=== PATIENT | male | born 1965 | race Caucasian/White ===

== ENCOUNTER 2024-08-19 10:25 | Observation (INO) | payer OTHER, SELFPAY ==
[2024-08-19] VITALS (18 sets, daily range): BP systolic 120–160; BP diastolic 65–108; PULSE 61–85; RESP 16–19; TEMP 36.4–36.8; O2SAT 93–100; BMI 21.7
[2024-08-19 10:34] LABS: Glucose Point of Care 162 mg/dL (70-110)
--- NOTE | 2024-08-19 10:34 | ED_ITS ---
HPI - Neuro Symptoms/Deficit 2 General: Chief Complaint: Neuro Symptoms/Deficit Stated Complaint: stroke symptoms Time Seen by Provider: 08/19/24 10:30 History of Present Illness: 59-year-old male presents emergency room complaining of strokelike symptoms. He had difficulty ambulating. Has weakness and some bilateral worse on the right than on the left his last known well was at 920 this morning. Bedtime patient arrived. Difficult time getting out of the car on his own however when I encountered him he was in the CT scanner at that point he states his symptoms have gotten much better. He is not on any anticoagulants. His initial NIH score to my testing was 0. He states most of his symptoms have resolved. His initial blood glucose was 162. He was dizzy and somewhat nauseous with it but that has also resolved. Associated symptoms: Deny chest pain Related Data Home Medications Medication Instructions Recorded Confirmed alprazolam 0.5 mg tablet 0.5 mg PO DAILY 08/19/24 08/19/24 diclofenac sodium 75 mg 75 mg PO BID 08/19/24 08/19/24 tablet,delayed release temazepam 30 mg capsule 30 mg PO QPM 08/19/24 08/19/24 trazodone 100 mg tablet 100 mg PO QPM 08/19/24 08/19/24 Allergies Allergy/AdvReac Type Severity Reaction Status Date / Time No Known Allergies Allergy Unverified 08/15/23 18:12 Review of Systems 2 Const: Denies: fever(s) or chills Card: Denies: chest pain Resp: Denies: dyspnea GI: Denies: abdominal pain : Denies: dysuria, urinary frequency or urinary urgency Musc: Denies: neck pain or back pain Skin/Breast: Denies: rash NIH stroke score 2 NIHSS: Level Of Consciousness - 1a: 0 Level Of Consciousness Questions - 1b: Both Correct Level Of Consciousness Commands - 1c: Both Correct Best Gaze - 2: Normal Visual Garcia - 3: No Visual Loss Facial Palsy - 4: N ormal Motor Arm Right - 5: No Drift Motor Arm Left - 5: No Drift Motor Leg Right - 6: No Drift Motor Leg Left - 6: No Drift Limb Ataxia - 7: A bsent Sensory - 8: Normal Best Language - 9: No Aphasia Dysarthia - 10: Normal Extinction And Inattention - 11: 0 Score: Total Score: 0 Physical Exam 2 Const: COMMON NORMALS: no acute distress GENERAL APPEARANCE: cooperative and comfortable ORIENTATION/CONSCIOUSNESS: Yes awake, Yes oriented to person, Yes oriented to place and Yes oriented to time HENMT: COMMON NORMALS: normocephalic, atraumatic and hearing grossly normal bilaterally HEAD & SCALP: normocephalic and atraumatic Resp: COMMON NORMALS: normal respiratory effort, No retractions, No use of accessory muscles and clear to auscultation bilaterally AUSCULTATION: clear to auscultation bilaterally Cardio: COMMON NORMALS: regular rate, regular rhythm and No murmurs present (Cardio) RATE: regular rate RHYTHM: regular rhythm GI: COMMON NORMALS: Soft to palpation and No hepatosplenomegaly present A USCULTATION: Yes normoactive bowel sounds PALPATION: Yes Soft to palpation, No Tenderness to palpation present (GI), No Guarding due to palpation present (GI) and Yes No hepatosplenomegaly present Extremity: COMMON NORMALS: normal to inspection, capillary refill normal, no clubbing, cyanosis or edema, no calf tenderness and no pedal edema Neuro: SENSORIUM/ORIENTATION: Yes oriented to person, Yes oriented to place and Yes oriented to time Skin: COMMON NORMALS: no rashes or lesions noted GENERAL SKIN EXAM: no rashes or lesions noted Course 2 Vital Signs: Vital signs: Vital Signs Temperature 98.3 F 08/19/24 10:42 Pulse Rate 68 08/19/24 14:30 Respiratory Rate 16 08/19/24 14:30 Blood Pressure 137/65 08/19/24 14:30 Pulse Oximetry 95 08/19/24 14:30 Oxygen Delivery Me thod Room Air 08/19/24 10:42 MDM - Neuro Symptoms/Deficit Medical Decision Making Shortly after I completed my initial exam Dr. Guillen arrives and is examining the patient in consultation for stroke team. 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 Guillen is recommending observation with further evaluation discussed with the hospitalist orders written Medical Records I reviewed the patient's medical records. Lab Data I reviewed the patient's lab results. 08/19/24 10:40 08/19/24 10:[address] 08/19/24 10:40 IMPRESSION: 1. No acute intracranial hemorrhage or edema. 2. Mild atrophy and small vessel disease. 3. Very subtle area of increased attenuation in the RIGHT M2 segment. This can be further evaluated by CT angiogram to exclude thrombus. Notified Louis Elias DO at 08/19/2024 10:47 AM. Head/Neck CTA 08/19/24 10:51 IMPRESSION: 1. No significant cervical carotid artery atherosclerotic disease or stenosis. 2. Mild atherosclerotic plaque in the cervical carotid arteries. 3. LEFT M2 and M3 arteries are smaller caliber than on the RIGHT. No complete occlusion. Change in caliber is in the distal M2 distribution. There is no [place] emboli. 4. LEFT posterior cerebral artery smaller caliber than the RIGHT with persistent circulation. Laboratory Results WBC 4.16 10^3/uL (3.29-11.43) 08/19/24 10:40 RBC 4.71 10^6/uL (3.85-5.65) 08/19/24 10:40 Hgb 14.30 g/dL (11.27-16.99) 08/19/24 10:40 Hct 41.3 % (37-53) 08/19/24 10:40 MCV 87.7 fl (82-101) 08/19/24 10:40 MCH 30.4 pg (27-33) 08/19/24 10:40 MCHC 34.6 g/dL (30-55) 08/19/24 10:40 RDW 12.6 % (12.1-15.1) 08/19/24 10:40 Plt Count 155 10^3/cmm (157-399) L 08/19/24 10:40 MPV 8.9 fL (7.4-10.4) 08/19/24 10:40 Neut % (Auto) 70.9 % 08/19/24 10:40 Lymph % (Auto) 19.5 % 08/19/24 10:40 [place] % (Auto) 7.5 % 08/19/24 10:40 Eos % (Auto) 1.2 % 08/19/24 10:40 Baso % (Auto) 0.7 % 08/19/24 10:40 Neut # (Auto) 2.95 10^3/uL (1.8-7.7) 08/19/24 10:40 Lymph # (Auto) 0.8 10^3/uL (0.8-4.8) 08/19/24 10:40 [place]in # (Auto) 0.3 10^3/uL (0.2-0.9) 08/19/24 10:40 Eos # (Auto) 0.1 10^3/uL (0.0-0.8) 08/19/24 10:40 Baso # (Auto) 0.0 10^3/uL (0.0-0.1) 08/19/24 10:40 Nucleated RBC % (auto) 0 % 08/19/24 10:40 Nucleated RBCs # 0.0 /100WBC 08/19/24 10:40 PT 13.70 SECONDS (12.1-14.9) 08/19/24 10:40 INR 0.98 (0.8-1.2) 08/19/24 10:40 APTT 36.2 SECONDS (23.9-36.7) 08/19/24 10:40 Sodium 133 mmol/L (136-145) L 08/19/24 10:40 Potassium 4.5 mmol/L (3.5-5.1) 08/19/24 10:40 Chloride 98 mmol/L (98-107) 08/19/24 10:40 Carbon Dioxide 19 mmol/L (22-29) L 08/19/24 10:40 Anion Gap 20.5 (5-19) H 08/19/24 10:40 BUN 20 mg/dL (8-23) 08/19/24 10:40 Creatinine 1.0 mg/dL (0.7-1.2) 08/19/24 10:40 GFR Calculation 76.0 mL/min (90-130) L 08/19/24 10:40 Glucose 159 mg/dL (65-115) H 08/19/24 10:40 POC Glucose 162 mg/dL (70-110) H 08/19/24 10:30 Calculated Osmolality 282 mOsm/kg (285-295) L 08/19/24 10:40 Calcium 9.0 mg/dL (8.5-10.5) 08/19/24 10:40 Total Bilirubin 0.6 mg/dL (0.15-1.2) 08/19/24 10:40 AST 56 U/L (0-40) H 08/19/24 10:40 ALT 86 U/L (0-41) H 08/19/24 10:40 Alkaline Phosphatase 93 U/L (40-130) 08/19/24 10:40 Total Protein 8.6 g/dL (6.6-8.7) 08/19/24 10:40 Albumin 4.2 g/dL (3.5-5.2) 08/19/24 10:40 Globulin 4.4 g/dL (1.3-4.6) 08/19/24 10:40 Urine Color Yellow (Yellow) 08/19/24 12:21 Urine Appearance Cloudy (CLEAR) A 08/19/24 12:21 Urine pH 6.5 (5-7) 08/19/24 12:21 Ur Specific [place] 1.041 (1.005-1.030) H 08/19/24 12:21 Urine Protein Negative (Negative) 08/19/24 12:21 Urine Glucose (UA) Negative (Normal) 08/19/24 12:21 Urine Ketones Negative (Negative) 08/19/24 12:21 Urine Blood Negative (Negative) 08/19/24 12:21 Urine Nitrate Negative (Negative) 08/19/24 12:21 Urine Bilirubin Negative (Negative) 08/19/24 12:21 Urine Urobilinogen 0.2 mg/dL (Negative) 08/19/24 12:21 Ur Leukocyte Esterase Negative (Negative) 08/19/24 12:21 Urine RBC 0-2 /hpf (0-2) 08/19/24 12:21 Urine WBC 0-5 /hpf (0-5) 08/19/24 12:21 Ur Squamous Epith Cells 0-5 /hpf (0-5) 08/19/24 12:21 Amorphous Sediment Not Reportable 08/19/24 12:21 Urine Bacteria None seen /hpf (NONE) 08/19/24 12:21 Hyaline Casts 0.81 /lpf 08/19/24 12:21 Urine Opiates Screen Negative ng/mL (Negative) 08/19/24 12:21 Ur Barbiturates Screen Negative ng/mL (Negative) 08/19/24 12:21 Ur Phencyclidine Scrn Negative ng/mL (Negative) 08/19/24 12:21 Ur Amphetamines Screen Negative ng/mL (Negative) 08/19/24 12:21 U Benzodiazepines Scrn Positive ng/mL (Negative) H 08/19/24 12:21 Urine Cocaine Screen Negative ng/mL (Negative) 08/19/24 12:21 U Marijuana (THC) Screen Negative ng/mL (Negative) 08/19/24 12:21 All radiology interpretation(s) finalized by discharge Discharge Plan Discharge Patient Disposition: Placed in Observation Admit Provider: Sheila Oneal Clinical Impression: TIA involving left internal carotid artery Condition: Stable Coding Level of Care Code ED Attache for Sabrina Jensen
--- NOTE | 2024-08-19 10:40 | CT_ITS ---
WS: [id number] CT HEAD NONCONTRAST HISTORY: DIZZY RT SIDE WEAKNESS TECHNIQUE: Contiguous axial imaging performed through the brain. Bone and soft tissue windows. Sagitt al and coronal reformats reviewed. All CT scans at [facility] use at least one of these dose optimization techniques: automated exposure control; mA and/or kV adjustment per patient size (includ es targeted exams where dose is matched to clinical indication); or iterative reconstruction. DLP: 1152.58 mGy COMPARISON: None available. No acute intracranial hemorrhage, midline shift or mass effect. Mild cerebral and cerebellar atrophy and small vessel disease. No prior lacunar infarct or large terr itory infarct. Ventricles: Normal size with no hydrocephalus. There is a tiny area of increased density in the RIGHT M2 segment which is asymmetric to the LEFT. Th is can be further evaluated by CT angiogram. Paranasal sinuses: As visualized are clear. Mastoid air cells: Well pneumatized. Calvarium and scalp: Skull is intact with no soft tissue edema or swelling. CT/CT head thrombolytic [id number] IMPRESSION: 1. No acute intracranial hemorrhage or edema. 2. Mild atrophy and small vessel disease. 3. Very subtle area of increased attenuation in the RIGHT M2 segment. This can be further evaluated by CT angiogram to exclude thrombus. Notified Louis Elias DO at 08/19/2024 10:47 AM.
[2024-08-19 10:45] LABS: Basophils % 0.7 %; Eosinophils # 0.1 10^3/uL (0.0-0.8); Eosinophils % 1.2 %; Hematocrit 41.3 % (37-53); Lymphocytes # 0.8 10^3/uL (0.8-4.8); Lymphocytes % 19.5 %; Mean Corpuscular HGB Conc 34.6 g/dL (30-55); Mean Corpuscular Hemoglobin 30.4 pg (27-33); Mean Corpuscular Volume 87.7 fl (82-101); Mean Platelet Volume 8.9 fL (7.4-10.4); Monocytes # 0.3 10^3/uL (0.2-0.9); Monocytes % 7.5 %; Neutrophils # 2.95 10^3/uL (1.8-7.7); Neutrophils % 70.9 %; Nucleated Red Blood Cells % 0 %; Platelet Count 155 10^3/cmm (157-399); Red Blood Count 4.71 10^6/uL (3.85-5.65); Red Cell Distribution Width 12.6 % (12.1-15.1); White Blood Count 4.16 10^3/uL (3.29-11.43)
--- NOTE | 2024-08-19 10:47 | PC.NURSE ---
FSBS AT TRIAGE 162.
--- NOTE | 2024-08-19 10:51 | CT_ITS ---
WS: [id number] CT ANGIOGRAM CEREBRAL AND CAROTID ARTERIES HISTORY: TIA TECHNIQUE: CT angiogram is performed of the carotid and cerebral arteries. During arterial injection imaging is obtained from the skull vertex to the aortic arch in 1.25 mm imaging. Coronal and sagittal reformats are submitted. Additional multi planar reformats of the carotid and cerebral arteries are submitted, MIP imaging also reviewed. NASCET criteria utilized. [facility] at least one of these dose optimization techniques: automated exposure control; mA and/or kV adjust ment per patient size (includes targeted exams where dose is matched to clinical indication); or iter ative reconstruction. CONTRAST: Omnipaque 350; 100 mL IV. DLP: 565.05 mGy.cm COMPARISON: Noncontrast CT head 08/19/2024 Carotid Angiogram: Right carotid: Common carotid artery: Arises normally from the innominate artery. No significant plaque or stenosis. Internal carotid artery: Intimal thickening surrounding the proximal ICA but no stenosis. External carotid artery: Patent. Left carotid: Common carotid artery: Arises normally from the aorta. No significant plaque or stenosis. Internal carotid artery: Mild intimal thickening. No stenosis. External carotid artery: Patent. Right vertebral artery: Dominant and patent. Left vertebral artery: Smaller caliber than the RIGHT vertebral artery. No occlusion. Subclavian arteries: No stenosis or significant abnormality. Upper thorax: Benign granuloma RIGHT upper lobe. Mild atherosclerotic plaque through the aortic arch. Thyroid gland: Normal. Osseous structures: Reversal of the normal cervical lordosis. Osseous fusion involving several cervic al vertebral bodies. Cerclage wires in the posterior spinous processes. CEREBRAL ANGIOGRAM: Intracranial vertebral arteries: Normal with no significant atherosclerosis. Basilar artery: No significant stenosis or occlusion. No aneurysm. Intracranial Internal carotid arteries: Demonstrates no significant stenosis or plaque. Middle cerebral arteries: Bilateral M1 segments are normal. M2 segments are asymmetric with the LEFT being smaller caliber. Paucity of vessels towards the distal LEFT M2 segment into the M3 segments. No definite arterial occlusion. Anterior cerebral arteries and ACOM: Small caliber LEFT A1 segment. No aneurysms. Posterior cerebral arteries and PCOM's: Small caliber LEFT posterior cerebral artery with persistent circulation. No thrombus identified. Dural venous sinuses are normally enhancing. Mastoid air cells: Normal. Paranasal sinuses: Normal. Calvarium: Normal. CT/CT angio headneck* [id number] IMPRESSION: 1. No significant cervical carotid artery atherosclerotic disease or stenosis. 2. Mild atherosclerotic plaque in the cervical carotid arteries. 3. LEFT M2 and M3 arteries are smaller caliber than on the RIGHT. No complete occlusion. Change in caliber is in the distal M2 distribution. There is no cent [place] emboli. 4. LEFT posterior cerebral artery smaller caliber than the RIGHT with persiste nt circulation.
--- NOTE | 2024-08-19 10:57 | ECG_ITS ---
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 Measurements Intervals Boyd Rate: 72 P: 72 MO: 140 QRS: 71 QRSD: 78 T: 47 QT: 366 QTc: 401 Interpretive Statements SINUS RHYTHM No previous ECG available for comparison Electronically Signed On 08-22-2024 22:09:01 DRIVER MESSENGER by Asad Carson M.D. [email or web address] [id number]
[2024-08-19 11:03] LABS: INR 0.98 (0.8-1.2)
[2024-08-19 11:04] LABS: Partial Thromboplastin Time 36.2 SECONDS (23.9-36.7)
--- NOTE | 2024-08-19 11:04 | P.CONIM_ITS ---
Providers/Reason For Consult 2 Consulting Physician/Specialty*: Searfin Guillen MD neurology and epilepsy Reason for Consult*: Acute care/code stroke emergency department room #4 Primary Care Provider: Chandana Fenton MD History of Present Illness History of Present Illness Aleks Grijalva is a 59 year old right-handed male with no previous past medical history except for insomnia treated with Restoril and marijuana. On 08/19/2024 the patient was out in the field with cattle and was reported to experience acute onset of dizziness followed by right-sided weakness and numbness and tingling (face arm and leg) with inability to see or respond at 9:20 AM on 08/19/2024. Patient was brought to [facility] emergency department.Code stroke was initiated at 10:28 AM on 08/19/2024 In the emergency department patient reported near resolution of his symptoms except for residual numbness and tingling in the first through the fifth digits of the right hand up to his proximal phalanges and right hand weakness without arm weakness. Patient also stated resolution of his facial numbness and reported normal vision with no visual deficit. NIH score = 2 (numbness in the first through the fifth digits of the fingers of the right hand up to his proximal phalanges =1, decreased right hand respiratory care program director at 3+ to 4/5 strength =1). There was no drift in the right upper extremity. Glucose Accu-Chek at point of contact 162. Blood pressure 146/[address] 08/19/2024 Impression: IMPRESSION: 1. No acute intracranial hemorrhage or edema. 2. Mild atrophy and small vessel disease. 3. Very subtle area of increased attenuation in the RIGHT M2 segment. This can be further evaluated by CT angiogram to exclude thrombus. Since the patient continued to report intermittent dizziness, I recommended patient undergo CT angiogram of the head and neck to assess for left ICA distribution thrombus or posterior circulation thrombus. Drug allergies: None Current medications: Restoril 30 mg p.o. nightly as needed for sleep Marijuana at night for sleep Past medical history: None Family history: Noncontributory Occupation: hvac installer Social history: The patient lives with his Review of Systems 2 General: Reports: 10 or more systems reviewed and unremarkable except in HPI and below Medications/Allergies Home Medications Medication Instructions Recorded Confirmed Last Taken Type alprazolam 0.5 mg tablet 0.5 mg PO DAILY 08/19/24 08/19/24 08/18/24 History diclofenac sodium 75 mg 75 mg PO BID 08/19/24 08/19/24 Unknown History tablet,delayed release temazepam 30 mg capsule 30 mg PO QPM 08/19/24 08/19/24 08/18/24 History trazodone 100 mg tablet 100 mg PO QPM 08/19/24 08/19/24 08/18/24 History Allergies Allergy/AdvReac Type Severity Reaction Status Date / Time No Known Allergies Allergy Unverified 08/15/23 18:12 Vitals/I&O/Wt Last Vital Signs Temp 98.3 F 08/19/24 10:42 Pulse 85 08/19/24 10:42 Resp 16 08/19/24 10:42 BP 160/108 08/19/24 10:42 Pulse Ox 100 08/19/24 10:42 O2 Del Method Room Air 08/19/24 10:42 Weight last 48 hrs Weight 160 lb Physical Exam 2 Narrative: NIH score = 2 (numbness in the first through the fifth digits of the fingers of the right hand up to his proximal phalanges =1, decreased right hand respiratory care program director at 3+ to 4/5 strength =1). There was no drift in the right upper extremity. Glucose Accu-Chek at point of contact 162. Blood pressure 146/[address] 08/19/2024 Impression: IMPRESSION: 1. No acute intracranial hemorrhage or edema. 2. Mild atrophy and small vessel diseas e. 3. Very subtle area of increased attenu ation in the RIGHT M2 segment. This can be further evaluated by CT angiogram to exclude thrombus. Since the patient continued to report intermittent dizziness, I recommended patient undergo CT angiogram of the head and neck to assess for left ICA distribution thrombus or posterior circulation thrombus. The patient is alert and oriented x 3. Speech fluent. Head normocephalic. Neck supple. Cranial nerves II through XII intact. There was no report of decreased sensation over the right face. Visual blair appear to be full via confrontation. Extraocular movements intact. There were no nystagmus. Motor testing 5/5 bilaterally except for 3+ to 4/5 strength in the right hand respiratory care program director. There was no drift. Deep tendon reflexes grossly 2+. Plantar responses flexor bilaterally. There was no clonus. Sensory examination revealed decreased sensation in the first through the fifth digits of the right hand up to his proximal phalanges. [id number] revealed no ataxia. [id number] maneuver revealed no ataxia. There was no extinction on double sensory stimulation. Throat clear. Lungs clear. Heart regular rhythm and rate. Extremities were negative for cyanosis or edema. Data 08/19/24 10:40 08/19/24 10:40 A&P Assessment and plan (1) TIA involving left internal carotid artery: Impression: 1. Left cerebral TIA versus stroke manifested as right sided numbness weakness and paresthesias involving his face arm and leg as well as difficulty with vision symptoms markedly improved in the emergency department with residual right hand weakness with right hand respiratory care program director at 3+ to 4/5 strength and decrease sensation in the first through the fifth digits of the right hand up to his proximal phalanges NIH score = 2 2. Episodic dizziness 3. Elevated liver profile 4. Mildly decreased platelet count 155,000 (normal equals 157-399,000) 5. Mild hyponatremia serum sodium 133 (normal equals 136-145) Plan: 1. Agree with obtaining CT angiogram of the head and neck to assess for left ICA thrombus as well as to assess for posterior circulation thrombosis since patient reporting intermittent dizziness 2. Recommend starting aspirin 325 mg p.o. every morning with food first dose now as well as cholesterol lowering agent per NIH stroke protocol. Please discuss potential side effects with patient regarding cholesterol-lowering agents 3. Stroke pamphlet/stroke education for patient and patient's family 4. Will recommend vascular evaluation or intervention is radiology evaluation if CT angiogram is remarkable for thrombosis that is surgically indicated for treatment 5. Vital signs and neurochecks per NIH stroke protocol 6. Occupational Therapy and physical therapy consults 7. Fall precautions 8. Recommend patient be admitted to cardiac telemetry monitoring and obtain cardiac evaluation if indicated 9. Recommend 2D echocardiogram with bubble study to assess for cardiac embolic source for stroke/TIA 10. Address mild hyponatremia and elevated liver profile 11. Recommend repeat platelet count 08/20/2024 and consider hematology evaluation if platelet count remains low Consult Attestations 2 Medical Necessity Statement: The patient was evaluated by neurology for acute care/code stroke emergency department room #4 Coding Level of Care Code 29026 Diagnoses TIA involving left internal carotid artery G45.1
[2024-08-19 11:06] LABS: Alanine Aminotransferase 86 U/L (0-41); Albumin Level 4.2 g/dL (3.5-5.2); Alkaline Phosphatase 93 U/L (40-130); Anion Gap 20.5 (5-19); Aspartate Amino Transferase 56 U/L (0-40); Blood Urea Nitrogen 20 mg/dL (8-23); Carbon Dioxide 19 mmol/L (22-29); Chloride 98 mmol/L (98-107); Globulin 4.4 g/dL (1.3-4.6); Glucose 159 mg/dL (65-115); Osmolality Calculated 282 mOsm/kg (285-295); Potassium 4.5 mmol/L (3.5-5.1); Sodium 133 mmol/L (136-145); Total Bilirubin 0.6 mg/dL (0.15-1.2); Total Protein 8.6 g/dL (6.6-8.7)
[2024-08-19] MEDS: iohexol 350 mg/mL 500 mL Btl (per mL) IV (11:15)
--- NOTE | 2024-08-19 11:55 | PC.NURSE ---
Pt reports he is having an episode of dizziness, VS obtained and all WNL. No other symptoms besides dizziness
[2024-08-19 12:38] LABS: Bilirubin Urine Negative (Negative); Blood Urine Negative (Negative); Glucose Urine UA Negative (Normal); Ketones Urine Negative (Negative); Leukocyte Esterase Urine Negative (Negative); Nitrate Urine Negative (Negative); Protein Urine Negative (Negative); Urine Appearance Cloudy (CLEAR); Urine Color Yellow (Yellow); Urobilinogen Urine 0.2 mg/dL (Negative); pH Urine 6.5 (5-7)
[2024-08-19 12:43] LABS: Add Urine Microscopic? YES; Bacteria Urine None Seen /hpf; Hyaline Casts Urine 0.81 /lpf; RBC Urine 0-2 /hpf (0-2); Squamous Epithelial Cell Urine 0-5 /hpf (0-5); WBC Urine 0-5 /hpf (0-5)
[2024-08-19 12:45] LABS: Add Urine Culture? No; Amphetamines Screen Urine Negative (Negative); Barbiturates Screen Urine Negative (Negative); Benzodiazepines Screen Urine Positive (Negative); Cocaine Screen Urine Negative (Negative); Opiate Screen Urine Negative (Negative); PCP Screen Urine Negative (Negative); Specific Gravity, Urine 1.041 (1.005-1.030); THC Screen Urine Negative (Negative)
--- NOTE | 2024-08-19 17:38 | PM.HP ---
Providers/Chief Complaint Admitting Physician: Sheila Oneal MD Primary Care Provider: Chandana Fenton MD Chief Complaint: stroke symptoms History of Present Illness Aleks Grijalva is a 59 year old male with no known medical comorbidities who presented to the hospital on August 19, 2024 with acute onset of dizziness followed by right-sided weakness and numbness and tingling. Code stroke was called upon arrival at 10:28 AM on 12/06/2024. By the time he reached the emergency department he had reported immediate resolution of his symptoms except for residual numbness and tingling through the first digits of the right hand. His NIH score was estimated to be at 2. He was evaluated by neurology in the emergency room. CT of the head showed a very subtle area of increased attenuation in the right M2 segment. CTA of the head and neck was without any gross vascular occlusion. He has been diagnosed with a TIA involving the left internal carotid artery. Review of Systems General: Reports: 10 or more systems reviewed and unremarkable except in HPI and below Const: Denies: fever(s), chills or body aches Eyes: Denies: change in vision, blurry vision or photophobia ENMT: Reports: hoarseness; Denies: throat pain, enlarged tonsils, odynophagia or nasal congestion Card: Denies: chest pain, palpitations, irregular heart rhythm, edema, swelling of feet/ankles, lightheadedness, pre-syncope, dyspnea on exertion or orthopnea Resp: Denies: dyspnea, productive cough, non-productive cough, wheezing, stridor, pain on inspiration, change in phlegm color, hemoptysis or chest congestion GI: Denies: abdominal pain, nausea, vomiting, hematemesis, coffee ground emesis, dysphagia, heartburn, diarrhea, constipation, GI cramping, change in stool character, hematochezia or melena : Denies: flank pain, dysuria, urinary frequency, urinary urgency, urinary hesitancy or hematuria Musc: Denies: neck pain, back pain, extremity pain, joint swelling, joint warmth or deformity Neuro: Denies: headache(s), numbness in extremities, weakness in extremities, sensory changes, difficulty walking, frequent falls, dizziness, vertigo, behavioral changes, Slurred speech present or seizure-like activity Psych: Denies: anxiety, depression, suicidal ideation or homicidal ideation Endo: Denies: polyuria, polydipsia, tired all the time, cold intolerance or hot flashes Marc/Lymph: Denies: easy bruising or easy bleeding Medications/Allergies Home Medications ?Medication ?Instructions ?Recorded ?Confirmed ?Last Taken ?Type alprazolam 0.5 mg tablet 0.5 mg PO DAILY 08/19/24 08/19/24 08/18/24 History temazepam 30 mg capsule 30 mg PO QPM 08/19/24 08/19/24 08/18/24 History trazodone 100 mg tablet 100 mg PO QPM 08/19/24 08/19/24 08/18/24 History aspirin 325 mg tablet 325 mg PO DAILY 30 days #30 tabs 08/20/24 Unknown Rx atorvastatin 40 mg tablet 40 mg PO BEDTIME 30 days #30 tabs 08/20/24 Unknown Rx Allergies Allergy/AdvReac Type Severity Reaction Status Date / Time No Known Allergies Allergy Unverified 08/15/23 18:12 Vitals/I&O/Wt Last Vital Signs Temp 98.3 F 08/19/24 10:42 Pulse 80 08/19/24 15:59 Resp 16 08/19/24 15:59 BP 120/72 08/19/24 15:59 Pulse Ox 95 08/19/24 15:59 O2 Del Method Room Air 08/19/24 16:20 Weight last 48 hrs Weight 72.575 kg Physical Exam Narrative: General: No acute distress, AO x3 HEENT: PERRLA, pupils bilaterally equal and reactive, pallors not present Chest: Normal vesicular breath sounds, no added sounds, equal good air entry bilaterally CVS: S1-S2 regular, no murmurs, no tachycardia, no gallops, no rubs Abdomen: Soft, nontender, no organomegaly, bowel sounds present Neuro: No focal deficits, no facial deformity, AO x3, power 5/5 in all limbs Data 08/19/24 10:40 08/20/24 05:25 Other data: Radiology Impressions Head CT 08/19/24 10:40 IMPRESSION: 1. No acute intracranial hemorrhage or edema. 2. Mild atrophy and small vessel disease. 3. Very subtle area of increased attenuation in the RIGHT M2 segment. This can be further evaluated by CT angiogram to exclude thrombus. Notified Louis Elias DO at 08/19/2024 10:47 AM. Head/Neck CTA 08/19/24 10:51 IMPRESSION: 1. No significant cervical carotid artery atherosclerotic disease or stenosis. 2. Mild atherosclerotic plaque in the cervical carotid arteries. 3. LEFT M2 and M3 arteries are smaller caliber than on the RIGHT. No complete occlusion. Change in caliber is in the distal M2 distribution. There is no central [place] of Betancourt emboli. 4. LEFT posterior cerebral artery smaller caliber than the RIGHT with persistent circulation. Liver Ultrasound 08/20/24 17:41 IMPRESSION: 1. Normal gallbladder. 2. No intrahepatic duct dilatation. 3. Small RIGHT renal cysts. Largest 1.4 cm in the upper pole. Laboratory Results WBC 4.16 10^3/uL (3.29-11.43) 08/19/24 10:40 RBC 4.71 10^6/uL (3.85-5.65) 08/19/24 10:40 Hgb 14.30 g/dL (11.27-16.99) 08/19/24 10:40 Hct 41.3 % (37-53) 08/19/24 10:40 MCV 87.7 fl (82-101) 08/19/24 10:40 MCH 30.4 pg (27-33) 08/19/24 10:40 MCHC 34.6 g/dL (30-55) 08/19/24 10:40 RDW 12.6 % (12.1-15.1) 08/19/24 10:40 Plt Count 155 10^3/cmm (157-399) L 08/19/24 10:40 MPV 8.9 fL (7.4-10.4) 08/19/24 10:40 Neut % (Auto) 70.9 % 08/19/24 10:40 Lymph % (Auto) 19.5 % 08/19/24 10:40 [place] % (Auto) 7.5 % 08/19/24 10:40 Eos % (Auto) 1.2 % 08/19/24 10:40 Baso % (Auto) 0.7 % 08/19/24 10:40 Neut # (Auto) 2.95 10^3/uL (1.8-7.7) 08/19/24 10:40 Lymph # (Auto) 0.8 10^3/uL (0.8-4.8) 08/19/24 10:40 [place] # (Auto) 0.3 10^3/uL (0.2-0.9) 08/19/24 10:40 Eos # (Auto) 0.1 10^3/uL (0.0-0.8) 08/19/24 10:40 Baso # (Auto) 0.0 10^3/uL (0.0-0.1) 08/19/24 10:40 Nucleated RBC % (auto) 0 % 08/19/24 10:40 Nucleated RBCs # 0.0 /100WBC 08/19/24 10:40 PT 13.70 SECONDS (12.1-14.9) 08/19/24 10:40 INR 0.98 (0.8-1.2) 08/19/24 10:40 APTT 36.2 SECONDS (23.9-36.7) 08/19/24 10:40 Sodium 136 mmol/L (136-145) 08/20/24 05:25 Potassium 4.2 mmol/L (3.5-5.1) 08/20/24 05:25 Chloride 103 mmol/L (98-107) 08/20/24 05:25 Carbon Dioxide 23 mmol/L (22-29) 08/20/24 05:25 Anion Gap 14.2 (5-19) 08/20/24 05:25 BUN 18 mg/dL (8-23) 08/20/24 05:25 Creatinine 0.7 mg/dL (0.7-1.2) 08/20/24 05:25 GFR Calculation 114.6 mL/min (90-130) 08/20/24 05:25 Glucose 104 mg/dL (65-115) 08/20/24 05:25 POC Glucose 162 mg/dL (70-110) H 08/19/24 10:30 Estimat Average Glucose 91 08/20/24 05:25 Hemoglobin A1c 4.8 % (4.0-6.0) 08/20/24 05:25 Calculated Osmolality 284 mOsm/kg (285-295) L 08/20/24 05:25 Calcium 8.5 mg/dL (8.5-10.5) 08/20/24 05:25 Total Bilirubin 0.5 mg/dL (0.15-1.2) 08/20/24 05:25 AST 54 U/L (0-40) H 08/20/24 05:25 ALT 78 U/L (0-41) H 08/20/24 05:25 Alkaline Phosphatase 86 U/L (40-130) 08/20/24 05:25 Total Protein 8.1 g/dL (6.6-8.7) 08/20/24 05:25 Albumin 3.9 g/dL (3.5-5.2) 08/20/24 05:25 Globulin 4.2 g/dL (1.3-4.6) 08/20/24 05:25 Triglycerides 77 mg/dL (0-150) 08/20/24 05:25 Cholesterol 183 mg/dL (0-200) 08/20/24 05: LDL Cholesterol, Calc 118 mg/dL (50-129) 08/20/24 05:25 HDL Cholesterol 50 mg/dL (60-100) L 08/20/24 05:25 LDL/HDL Ratio 2.36 RATIO (0.00-3.22) 08/20/24 05:25 Cholesterol/HDL Ratio 3.66 mg/dL (1.0-5.00) 08/20/24 05:25 Urine Color Yellow (Yellow) 08/19/24 12:21 Urine Appearance Cloudy (CLEAR) A 08/19/24 12:21 Urine pH 6.5 (5-7) 08/19/24 12:21 Ur Specific [place] 1.041 (1.005-1.030) H 08/19/24 12:21 Urine Protein Negative (Negative) 08/19/24 12:21 Urine Glucose (UA) Negative (Normal) 08/19/24 12:21 Urine Ketones Negative (Negative) 08/19/24 12:21 Urine Blood Negative (Negative) 08/19/24 12:21 Urine Nitrate Negative (Negative) 08/19/24 12:21 Urine Bilirubin Negative (Negative) 08/19/24 12:21 Urine Urobilinogen 0.2 mg/dL (Negative) 08/19/24 12:21 Ur Leukocyte Esterase Negative (Negative) 08/19/24 12:21 Urine RBC 0-2 /hpf (0-2) 08/19/24 12:21 Urine WBC 0-5 /hpf (0-5) 08/19/24 12:21 Ur Squamous Epith Cells 0-5 /hpf (0-5) 08/19/24 12:21 Amorphous Sediment Not Reportable 08/19/24 12:21 Urine Bacteria None seen /hpf (NONE) 08/19/24 12:21 Hyaline Casts 0.81 /lpf 08/19/24 12:21 Urine Opiates Screen Negative ng/mL (Negative) 08/19/24 12:21 Ur Barbiturates Screen Negative ng/mL (Negative) 08/19/24 12:21 Ur Phencyclidine Scrn Negative ng/mL (Negative) 08/19/24 12:21 Ur Amphetamines Screen Negative ng/mL (Negative) 08/19/24 12:21 U Benzodiazepines Scrn Positive ng/mL (Negative) H 08/19/24 12:21 Urine Cocaine Screen Negative ng/mL (Negative) 08/19/24 12:21 U Marijuana (THC) Screen Negative ng/mL (Negative) 08/19/24 12:21 Hepatitis A IgM Ab Non-reactive (Nonreactive) 08/20/24 05:25 Hep Bs Antigen Non-reactive (Nonreactive) 08/20/24 05:25 Hep Bs Antibody < 3.5 (11.5-1000) L 08/20/24 05:25 Hep B Core Total Ab Non-reactive (Nonreactive) 08/20/24 05:25 Hepatitis C Antibody Non-reactive (Nonreactive) 08/20/24 05:25 A&P Assessment and plan (1) TIA involving left internal carotid artery: Admit the patient to [facility] for close neuro monitoring he is not a tPA candidate as symptoms are much improved at the time of arrival. Continue telemetry monitoring on the unit to evaluate for underlying arrhythmias. CT head as noted above CTA head and neck without any major vessel occlusion. Echocardiogram ordered and pending Start aspirin 325 mg mg daily per neurology recommendation Atorvastatin 40 mg daily PT OT speech therapy assessment HbA1c for risk stratification DVT prophylaxis: SCDs Attestations Medical Necessity Statement*: Less than 2 midnight stay is anticipated for TIA Coding Level of Care Code Acute Code for [facility] Diagnoses TIA involving left internal carotid artery G45.1
--- NOTE | 2024-08-19 17:39 | USCV_ITS ---
Aleks Grijalva Age: 59 Gender: M : 1965 Exam Date: 08/19/2024 19:49 Ordering Phys: Sheila Oneal MD Technologist: POONAM Exam Location: [facility] [place] Indication: stroke BP: 132 / 85 HR: 67 Rhythm: Sinus Technical Quality: Adequate MEASUREMENTS (Male / Female) Normal Values 2D ECHO LV Diastolic Diameter PLAX 4.6 cm 4.2 - 5.9 / 3.9 - 5.3 cm IVS Diastolic Thickness 1.2 cm 0.6 - 1.0 / 0.6 - 0.9 cm IVS Systolic Thickness 1.7 cm LVPW Diastolic Thickness 0.8 cm 0.6 - 1.0 / 0.6 - 0.9 cm LVPW Systolic Thickness 1.2 cm LVOT Diameter 2.1 cm LV Ejection Fraction 2D Teich 69.1 % LV Ejection Fraction MOD 4C 69.4 % LV Ejection Fraction MOD 2C 61.5 % LV Ejection Fraction 2C AL 61.0 % LA Diameter 3.1 cm Aorta at Sinotubular Diameter 2.8 cm IVC Diameter 1.8 cm M-MODE LA Ao Ratio MM 1.1 AV Cusp Separation MM 1.7 cm DOPPLER AV Peak Velocity 114.0 cm/s LVOT Peak Velocity 84.0 cm/s AV Area Cont Eq vti 3.0 cm squared AV Area Cont Eq pk 2.5 cm squared MV Peak Velocity 85.0 cm/s MV Area PHT 4.3 cm squared Mitral E to A Ratio 0.9 TV Peak Velocity 214.0 cm/s TR Peak Velocity 222.0 cm/s TR Peak Gradient 19.7 mmHg TV Peak E Velocity 40.0 cm/s PV Peak Velocity 120.0 cm/s FINDINGS Left Ventricle Normal left ventricular size, systolic function and wall thickness, with no regional wall motion abnormalities. Left ventricular ejection fraction is estimated at 60 %. Grade I/IV diastolic dysfunction (abnormal relaxation filling pattern), normal to mildly elevated filling pressures. Right Ventricle The right ventricle is normal in size and function. Right Atrium The right atrium is normal in size. Left Atrium The left atrium is normal in size. Mitral Valve Mildly thickened mitral valve. No mitral valve stenosis. Mild mitral valve regurgitation. Aortic Valve Mild aortic valve calcification. No aortic valve stenosis. Trace aortic valve regurgitation. Tricuspid Valve Structurally normal tricuspid valve without significant stenosis or regurgitation. Pulmonic Valve Structurally normal pulmonic valve without significant stenosis. There is no pulmonic regurgitation. Pericardium Normal pericardium without effusion. Aorta Normal ascending aorta dimension. IVC The inferior vena cava appears normal. CONCLUSIONS Normal left ventricular size, systolic function and wall thickness, with no regional wall motion abnormalities. Left ventricular ejection fraction is estimated at 60 %. Grade I/IV diastolic dysfunction (abnormal relaxation filling pattern), normal to mildly elevated filling pressures. There is no pericardial effusion. No significant valve abnormalities. Right atrial pressure is around 5 mm of mercury. Franco Downing MD (Electronically Signed) Final Date: 20 August 2024 20:28 S
[2024-08-19] MEDS: atorvastatin 40 mg Tablet PO (22:10)
[2024-08-20 00:09] VITALS: BP 111/70; PULSE 58; RESP 16; TEMP 36.4; O2SAT 95
[2024-08-20 04:00] VITALS: BP 128/72; PULSE 70; RESP 17; TEMP 36.7; O2SAT 96
[2024-08-20 06:30] LABS: Estmated Average Glucose 91; Hemoglobin A1C 4.8 % (4.0-6.0)
[2024-08-20 06:32] LABS: Alanine Aminotransferase 78 U/L (0-41); Albumin Level 3.9 g/dL (3.5-5.2); Alkaline Phosphatase 86 U/L (40-130); Anion Gap 14.2 (5-19); Aspartate Amino Transferase 54 U/L (0-40); Blood Urea Nitrogen 18 mg/dL (8-23); Calcium 8.5 mg/dL (8.5-10.5); Carbon Dioxide 23 mmol/L (22-29); Chloride 103 mmol/L (98-107); Chol HDL Ratio 3.66 mg/dL (1.0-5.00); Cholesterol 183 mg/dL (0-200); Creatinine Clr Calc Pharmacy 118.4843; Globulin 4.2 g/dL (1.3-4.6); Glomerular Filtration Rate 114.6 mL/min (90-130); Glucose 104 mg/dL (65-115); HDL Cholesterol 50 mg/dL (60-100); LDL Cholesterol Calculated 118 mg/dL (50-129); LDL HDL Ratio 2.36 RATIO (0.00-3.22); Osmolality Calculated 284 mOsm/kg (285-295); Potassium 4.2 mmol/L (3.5-5.1); Sodium 136 mmol/L (136-145); Total Bilirubin 0.5 mg/dL (0.15-1.2); Total Protein 8.1 g/dL (6.6-8.7); Triglycerides 77 mg/dL (0-150)
[2024-08-20 06:50] LABS: Hepatitis A Antibody IgM Non-Reactive (Nonreactive); Hepatitis B Core AB, Total Non-Reactive (Nonreactive); Hepatitis C Virus Antibody Non-Reactive (Nonreactive)
[2024-08-20 07:42] VITALS: BP 132/77; PULSE 68; RESP 18; TEMP 36.6; O2SAT 95
[2024-08-20] MEDS: aspirin 325 mg Tablet PO (08:10)
[2024-08-20 08:45] LABS: Hepatitis B Surface Antigen Non-Reactive (Nonreactive)
--- NOTE | 2024-08-20 10:15 | PC.CHAP ---
Pastoral Care Encounter/Spiritual Assessment Type of Contact [] Declined hydroponics grower visit [] Patient/Family/Request visit [] Outpatient visit [] Follow-up visit [] Physician referral [] Code/Alert [x] Routine visit [] Staff referral [] Actively dying [] Patient sleeping [x] Family support [] [] Out of room [] Palliative care [] [] Receiving care in room [] Pre-surgical visit [] Trauma [] Long length of stay [] ICU visit [] Other: Relational/Emotional Strength [x] Patient feels connected with others/family/visitors/staff [] Distress [] Loneliness/isolation [] Abandonment Spirituality of Patient [x] Person of Marge [] Attends Mandaeism of their Marge [x] Believes in Prayer [] Reads Bible or Worship materials [] There are Spiritual issues to be addressed Rn Float Interventions [x] Prayer [x] Active listening [] Non-anxious presence [x] Spiritual/emotional support [] Crisis/trauma care [] Spiritual counseling [] Bereavement support [] Provided bereavement packet [] Provided Bible/devotional materials [] Provided toy/stuffed animal, coloring book to patient or family member [] Provided Communion [] Anointing/[place] [] Salvation [x] Completed spiritual assessment [] Other: Impact on Illness or Injury [] Angry [] Fearful [] Anxious [] Often cries [] Exhaustion [] Unable to work [] Unable to attend hindu [] Unable to walk/stand [] Unable to read [] Unable to drive [] Unable to eat/drink [] Unable to sleep [] Unable to be with family [] Patient intubated [] Other: Summary Time spent with patient 5 min
[2024-08-20 10:26] LABS: Hepatitis B Surface AB < 3.5 (11.5-1000)
[2024-08-20 11:50] VITALS: BP 122/75; PULSE 67; RESP 17; TEMP 36.7; O2SAT 95
[2024-08-20 13:42] VITALS: BP 122/75; PULSE 67; RESP 16; TEMP 36.7; O2SAT 95
--- NOTE | 2024-08-20 17:27 | PM.DCS ---
Discharge Providers Date of Admission: 08/19/24 13:45 Date of Discharge: August 20, 2024 Attending Provider at Admission: Sheila Oneal MD Attending Provider at Discharge: Sheila Oneal MD Primary Care Provider: Chandana Fenton MD Diagnoses at Discharge Discharge Diagnosis (1) TIA involving left internal carotid artery: Status: Acute Reason for Visit Reason for Visit: stroke symptoms Hospital Course Hospital Course Aleks Grijalva is a 59 year old male with no known medical comorbidities who presented to the hospital on August 19, 2024 with acute onset of dizziness followed by right-sided weakness and numbness and tingling. Code stroke was called upon arrival at 10:28 AM on 12/06/2024. By the time he reached the emergency department he had reported immediate resolution of his symptoms except for residual numbness and tingling through the first digits of the right hand. His NIH score was estimated to be at 2. He was evaluated by neurology in the emergency room. CT of the head showed a very subtle area of increased attenuation in the right M2 segment. CTA of the head and neck was without any gross vascular occlusion. He has been diagnosed with a TIA involving the left internal carotid artery. Telemetry monitoring did not reveal any underlying arrhythmias overnight. Echocardiogram was taken, currently pending at the time of discharge, encouraged to follow-up with his primary care physician. Patient is eager to be discharged home today without waiting for the results of the echocardiogram. He was evaluated by PT OT and speech therapy. He is being discharged with aspirin 325 mg p.o. daily, atorvastatin 40 mg p.o. daily. HbA1c at 4.8, not consistent with a diagnosis of diabetes mellitus. Physical Exam Narrative: General: No acute distress, AO x3 HEENT: PERRLA, pupils bilaterally equal and reactive, pallors not present Chest: Normal vesicular breath sounds, no added sounds, equal good air entry bilaterally CVS: S1-S2 regular, no murmurs, no tachycardia, no gallops, no rubs Abdomen: Soft, nontender, no organomegaly, bowel sounds present Neuro: No focal deficits, no facial deformity, AO x3, power 5/5 in all limbs Discharge Data Studies Completed and Pending Completed Studies During Hospitalization Category Date Time Status CT head thrombolytic [id number] Stat Cat Scan 08/19/24 10:40 Completed CTA head neck [CT angio headneck* [id number]] Stat Cat Scan 08/19/24 10:51 Completed US liver [id number] Routine Ultrasound 08/20/24 17:41 Completed Pending at discharge Category Date Time Status CV. echo complete* [id number] Routine Ultrasound 08/19/24 17:39 Taken Radiology Impressions Head CT 08/19/24 10:40 IMPRESSION: 1. No acute intracranial hemorrhage or edema. 2. Mild atrophy and small vessel disease. 3. Very subtle area of increased attenuation in the RIGHT M2 segment. This can be further evaluated by CT angiogram to exclude thrombus. Notified Louis Elias DO at 08/19/2024 10:47 AM. Head/Neck CTA 08/19/24 10:51 IMPRESSION: 1. No significant cervical carotid artery atherosclerotic disease or stenosis. 2. Mild atherosclerotic plaque in the cervical carotid arteries. 3. LEFT M2 and M3 arteries are smaller caliber than on the RIGHT. No complete occlusion. Change in caliber is in the distal M2 distribution. There is no central [place] of Betancourt emboli. 4. LEFT posterior cerebral artery smaller caliber than the RIGHT with persistent circulation. Liver Ultrasound 08/20/24 17:41 IMPRESSION: 1. Normal gallbladder. 2. No intrahepatic duct dilatation. 3. Small RIGHT renal cysts. Largest 1.4 cm in the upper pole. Laboratory Results WBC 4.16 10^3/uL (3.29-11.43) 08/19/24 10:40 RBC 4.71 10^6/uL (3.85-5.65) 08/19/24 10:40 Hgb 14.30 g/dL (11.27-16.99) 08/19/24 10:40 Hct 41.3 % (37-53) 08/19/24 10:40 MCV 87.7 fl (82-101) 08/19/24 10:40 MCH 30.4 pg (27-33) 08/19/24 10:40 MCHC 34.6 g/dL (30-55) 08/19/24 10:40 RDW 12.6 % (12.1-15.1) 08/19/24 10:40 Plt Count 155 10^3/cmm (157-399) L 08/19/24 10:40 MPV 8.9 fL (7.4-10.4) 08/19/24 10:40 Neut % (Auto) 70.9 % 08/19/24 10:40 Lymph % (Auto) 19.5 % 08/19/24 10:40 [place] % (Auto) 7.5 % 08/19/24 10:40 Eos % (Auto) 1.2 % 08/19/24 10:40 Baso % (Auto) 0.7 % 08/19/24 10:40 Neut # (Auto) 2.95 10^3/uL (1.8-7.7) 08/19/24 10:40 Lymph # (Auto) 0.8 10^3/uL (0.8-4.8) 08/19/24 10:40 [place] # (Auto) 0.3 10^3/uL (0.2-0.9) 08/19/24 10:40 Eos # (Auto) 0.1 10^3/uL (0.0-0.8) 08/19/24 10:40 Baso # (Auto) 0.0 10^3/uL (0.0-0.1) 08/19/24 10:40 Nucleated RBC % (auto) 0 % 08/19/24 10:40 Nucleated RBCs # 0.0 /100WBC 08/19/24 10:40 PT 13.70 SECONDS (12.1-14.9) 08/19/24 10:40 INR 0.98 (0.8-1.2) 08/19/24 10:40 APTT 36.2 SECONDS (23.9-36.7) 08/19/24 10:40 Sodium 136 mmol/L (136-145) 08/20/24 05:25 Potassium 4.2 mmol/L (3.5-5.1) 08/20/24 05:25 Chloride 103 mmol/L (98-107) 08/20/24 05:25 Carbon Dioxide 23 mmol/L (22-29) 08/20/24 05:25 Anion Gap 14.2 (5-19) 08/20/24 05:25 BUN 18 mg/dL (8-23) 08/20/24 05:25 Creatinine 0.7 mg/dL (0.7-1.2) 08/20/24 05:25 GFR Calculation 114.6 mL/min (90-130) 08/20/24 05:25 Glucose 104 mg/dL (65-115) 08/20/24 05:25 POC Glucose 162 mg/dL (70-110) H 08/19/24 10:30 Estimat Average Glucose 91 08/20/24 05:25 Hemoglobin A1c 4.8 % (4.0-6.0) 08/20/24 05:25 Calculated Osmolality 284 mOsm/kg (285-295) L 08/20/24 05:25 Calcium 8.5 mg/dL (8.5-10.5) 08/20/24 05:25 Total Bilirubin 0.5 mg/dL (0.15-1.2) 08/20/24 05:25 AST 54 U/L (0-40) H 08/20/24 05:25 ALT 78 U/L (0-41) H 08/20/24 05:25 Alkaline Phosphatase 86 U/L (40-130) 08/20/24 05:25 Total Protein 8.1 g/dL (6.6-8.7) 08/20/24 05:25 Albumin 3.9 g/dL (3.5-5.2) 08/20/24 05:25 Globulin 4.2 g/dL (1.3-4.6) 08/20/24 05:25 Triglycerides 77 mg/dL (0-150) 08/20/24 05:25 Cholesterol 183 mg/dL (0-200) 08/20/24 05:25 LDL Cholesterol, Calc 118 mg/dL (50-129) 08/20/24 05:25 HDL Cholesterol 50 mg/dL (60-100) L 08/20/24 05:25 LDL/HDL Ratio 2.36 RATIO (0.00-3.22) 08/20/24 05:25 Cholesterol/HDL Ratio 3.66 mg/dL (1.0-5.00) 08/20/24 05:25 Urine Color Yellow (Yellow) 08/19/24 12:21 Urine Appearance Cloudy (CLEAR) A 08/19/24 12:21 Urine pH 6.5 (5-7) 08/19/24 12:21 Ur Specific [place] 1.041 (1.005-1.030) H 08/19/24 12:21 Urine Protein Negative (Negative) 08/19/24 12:21 Urine Glucose (UA) Negative (Normal) 08/19/24 12:21 Urine Ketones Negative (Negative) 08/19/24 12:21 Urine Blood Negative (Negative) 08/19/24 12:21 Urine Nitrate Negative (Negative) 08/19/24 12:21 Urine Bilirubin Negative (Negative) 08/19/24 12:21 Urine Urobilinogen 0.2 mg/dL (Negative) 08/19/24 12:21 Ur Leukocyte Esterase Negative (Negative) 08/19/24 12:21 Urine RBC 0-2 /hpf (0-2) 08/19/24 12:21 Urine WBC 0-5 /hpf (0-5) 08/19/24 12:21 Ur Squamous Epith Cells 0-5 /hpf (0-5) 08/19/24 12:21 Amorphous Sediment Not Reportable 08/19/24 12:21 Urine Bacteria None seen /hpf (NONE) 08/19/24 12:21 Hyaline Casts 0.81 /lpf 08/19/24 12:21 Urine Opiates Screen Negative ng/mL (Negative) 08/19/24 12:21 Ur Barbiturates Screen Negative ng/mL (Negative) 08/19/24 12:21 Ur Phencyclidine Scrn Negative ng/mL (Negative) 08/19/24 12:21 Ur Amphetamines Screen Negative ng/mL (Negative) 08/19/24 12:21 U Benzodiazepines Scrn Positive ng/mL (Negative) H 08/19/24 12:21 Urine Cocaine Screen Negative ng/mL (Negative) 08/19/24 12:21 U Marijuana (THC) Screen Negative ng/mL (Negative) 08/19/24 12:21 Hepatitis A IgM Ab Non-reactive (Nonreactive) 08/20/24 05:25 Hep Bs Antigen Non-reactive (Nonreactive) 08/20/24 05:25 Hep Bs Antibody < 3.5 (11.5-1000) L 08/20/24 05:25 Hep B Core Total Ab Non-reactive (Nonreactive) 08/20/24 05:25 Hepatitis C Antibody Non-reactive (Nonreactive) 08/20/24 05:25 Vitals Last Vital Signs Temp 98.1 F 08/20/24 13:42 Pulse 67 08/20/24 13:42 Resp 16 08/20/24 13:42 BP 122/75 08/20/24 13:42 Pulse Ox 95 08/20/24 13:42 O2 Del Method Room Air 08/20/24 11:50 Discharge Plan Discharge Patient Disposition: Home Condition: Stable Prescriptions: New atorvastatin 40 mg Tablet 40 mg PO BEDTIME 30 Days Qty: 30 0RF aspirin 325 mg Tablet 325 mg PO DAILY 30 Days Qty: 30 0RF Continued alprazolam 0.5 mg tablet 0.5 mg PO DAILY trazodone 100 mg tablet 100 mg PO QPM temazepam 30 mg capsule 30 mg PO QPM Discontinued diclofenac sodium 75 mg tablet,delayed release (DR/EC) 75 mg PO BID Discharge Orders: Discharge Order (Routine); Ordered 08/20/24 Ordered By: Sheila Oneal Referrals: Serafin Guillen MD [Physician] - 7-10 days (We have notified your physician's clinic of the need for a follow-up appointment to be scheduled. If you have not heard from them within the next 2 business days, please call them directly. ) Chandana Fenton MD [Primary Care Provider] - 09/04/24 9:45 am Discharge Diet: Cardiac Discharge Activity: Resume usual activity Patient Instructions: Aspirin (By mouth), Atorvastatin (By mouth), Transient Ischemic Attack (GEN), Opioid Safety, Stroke Stoplight Discharge Attestations Time Spent in Discharge Care*: greater than 30 min Quality Metrics Clinical Quality Measures [ Cerebrovascular Accident { Contraindication to Antithrombotic: None; antithrombotic prescribed; Contraindication to Anticoagulation: Overlap treatment not indicated; Contraindication to Statin: None; Statin prescribed;}] Coding Level of Care Code Acute Code for [facility] Diagnoses TIA involving left internal carotid artery G45.1
--- NOTE | 2024-08-20 17:41 | US_ITS ---
WS: [id number] RIGHT UPPER QUADRANT ULTRASOUND HISTORY: transaminitis COMPARISON: None available. Liver: 13.2 cm in length. Normal size liver and echogenicity. No bile duct dilatation or mass. Portal Vein: Normal hepatopetal flow with monophasic waveform. Gallbladder: Normally distended gallbladder with no stones or wall thickening. CBD: 0.3 cm Pancreas: Normal size and echogenicity. Right kidney: 8.4 cm in length. Normal size kidney. There are small simple cysts. Largest cyst in the superior pole measures 1.4 cm. No solid mass. Aorta and IVC: Mild atherosclerosis aorta. No ascites. US/US liver [id number] IMPRESSION: 1. Normal gallbladder. 2. No intrahepatic duct dilatation. 3. Small RIGHT renal cysts. Largest 1.4 cm in the upper pole.
== END 2024-08-20 13:30 | disposition home or self-care (01) ==
LOC: ER 11:43 → ER IP 13:45 → MEDSURG 15:56
PROVIDERS: Admitting Provider Student in an Organized Health Care Education/Training Program; Emergency Provider Family Medicine; PCP Family Medicine; Visit Provider Student in an Organized Health Care Education/Training Program
DX: G45.1 Carotid artery syndrome (hemispheric) (principal); N28.1 Cyst of kidney, acquired; Z79.899 Other long term (current) drug therapy; G47.00 Insomnia, unspecified; E87.1 Hypo-osmolality and hyponatremia; D69.6 Thrombocytopenia, unspecified; R79.89 Other specified abnormal findings of blood chemistry
CPT/HCPCS: 36415; 36416; 70450; 70496; 70498; 76705; 80053; 80061; 80306; 81001; 82962; 83036; 85025; 85610; 85730; 86705; 86706; 86709; 86803; 87340; 92523; 93005; 93306; 96374; 97161; 97165; 99285; G0378